=== PATIENT | male | born 1960 | race Caucasian/White ===

== ENCOUNTER 2022-03-05 22:52 | Inpatient (IN) | payer MEDICARE, OTHER ==
[~2022-03-05] VITALS: Ht 177.8 cm; Wt 72.6 kg
[2022-03-05 23:57] LABS: BASOPHILS # (AUTO) 0.1 K/uL (0.0-0.2); BASOPHILS % (AUTO) 0.9 % (0.0-2.0); EOSINOPHILS % (AUTO) 2.6 % (0.0-6.0); HEMATOCRIT 42 % (39-51); HEMOGLOBIN 14.1 g/dL (13.5-17.5); LYMPHOCYTES % (AUTO) 21.5 % (20.0-44.0); MEAN CORPUSCULAR HGB CONC 33 g/dl (31.0-36.0); MEAN CORPUSCULAR VOLUME 94 fL (80-96); MONOCYTES # (AUTO) 0.8 K/uL (0.1-1.30); MONOCYTES % (AUTO) 8.8 % (2.0-12.0); NEUTROPHILS # (AUTO) 6.3 K/uL (1.8-8.9); NEUTROPHILS % (AUTO) 66.2 % (43.0-81.0); PLATELET COUNT (AUTO) 143 K/uL (150-450); RED BLOOD CELL COUNT(AUTO) 4.49 MIL/uL (4.5-6.0); WHITE BLOOD COUNT (AUTO) 9.5 K/uL (4.3-11.0)
[2022-03-06 00:04] LABS: CALCIUM, SERUM 8.3 mg/dL (8.5-10.1); CARBON DIOXIDE 27 mmol/L (21-32); CHLORIDE 104 mmol/L (98-107); GLUCOSE 102 mg/dL (74-106); POTASSIUM 3.7 mmol/L (3.5-5.1); SODIUM SERUM 138 mmol/L (136-145); UREA NITROGEN, BLOOD 18 mg/dL (7-18)
[2022-03-06 00:11] LABS: ALANINE AMINOTRANSFERASE 30 U/L (12-78); ALBUMIN 3.4 g/dL (3.4-5.0); ALCOHOL, BLOOD < 3 mg/dL (0-0); ALKALINE PHOSPHATASE 93 U/L (46-116); ASPARTATE AMINOTRANSFERASE 19 U/L (15-37); BILIRUBIN,DIRECT 0.1 mg/dL (0.0-0.2); BILIRUBIN,TOTAL 0.3 mg/dL (0.2-1.0); TOTAL PROTEIN, SERUM 7.1 g/dL (6.4-8.2)
--- NOTE | 2022-03-06 00:17 | NUR ---
URINE AND COVID SWAB DONE AND SENT TO LAB
[2022-03-06 00:18] LABS: ACETAMINOPHEN 0 ug/ml (10-30)
[2022-03-06 01:01] LABS: BILIRUBIN,URINE NEGATIVE (NEGATIVE); COLOR,URINE YELLOW (YELLOW); LEUKOCYTE ESTERASE ,URINE NEGATIVE (NEGATIVE); NITRITE, URINE NEGATIVE (NEGATIVE); PH,URINE 5.5 (5.0-8.0); PROTEIN,URINE NEGATIVE (NEGATIVE); UGLUCOSE NEGATIVE (NEGATIVE); UROBILINOGEN,URINE 0.2 EU/dL (0.2)
--- NOTE | 2022-03-06 02:13 | NUR ---
PALMIRA HAMPTON PAGED FOR PSYCH EVAL AND WILL BE COMING.
--- NOTE | 2022-03-06 03:13 | NUR ---
MEMO AT BEDSIDE FOR EVAL.
--- NOTE | 2022-03-06 03:49 | NUR ---
REPORT GIVEN TO CLEMENT BURDICK FOR STEFANI
--- NOTE | 2022-03-06 04:44 | NUR ---
GPS RN NOTE PATIENT IS AGITATED, ANXIOUS, UNCOOPERATIVE AND REFUSED MRSA, SKIN ASSESSMENT, PATIENT REFUSED TO BE TOUCHED AND ALSO REFUSED ACCU CHECK UPON ADMISSION DESPITE OF EXPLANATIONS BUT PATIENT IS NON REDIRECTABLE AT THIS TIME AND REFUSED TO COOPERATE. Addendum: 03/06/22 at 0452 by LAMONT AVERY RN PATIENT WAS OFFERED ASSISTANCE, FOOD AND FLUIDS BUT PATIENT REFUSED ALL. GAVE SPACE TO THE PATIENT TO CALM DOWN. WILL CONTINUE TO MONITOR FOR ANY CHANGE OF CONDITION.
--- NOTE | 2022-03-06 04:46 | NUR ---
PATIENT TRANSFERRED, VSS, NO ACUTE DISTRESS NOTED.
[2022-03-06] MEDS ORDERED: AMLO-213 PO (04:58)
[2022-03-06] MEDS ORDERED: ASPI-1169 PO (04:58)
[2022-03-06] MEDS ORDERED: DULO30CA2 PO (04:59)
[2022-03-06] MEDS ORDERED: CHOL100045 PO (05:00)
[2022-03-06] MEDS ORDERED: LORAZEPAM 0.5 MG TABLET PO PRN (05:00)
[2022-03-06] MEDS ORDERED: MAG HYDROX/AL HYDROX/SIMETH 30 ML UDC PO PRN (05:00)
[2022-03-06] MEDS ORDERED: BLOOD SUGAR DIAGNOSTIC 1 EACH STRIP IN ONE (05:00)
[2022-03-06] MEDS ORDERED: MAGNESIUM HYDROXIDE 30 ML UDC PO PRN (05:00)
[2022-03-06] MEDS ORDERED: ACETAMINOPHEN 325 MG TABLET PO PRN (05:00)
[2022-03-06] MEDS ORDERED: BUDE0.5A4 NEB (05:01)
[2022-03-06] MEDS ORDERED: BUSP5TAB3 PO (05:03)
[2022-03-06] MEDS ORDERED: METO25TA4 PO (05:04)
[2022-03-06] MEDS ORDERED: ASCO500T21 PO (05:05)
[2022-03-06] MEDS ORDERED: ATOR10TA PO (05:06)
[2022-03-06] MEDS ORDERED: METF-440 PO (05:07)
--- NOTE | 2022-03-06 05:08 | NUR ---
GPS RN NOTE PATIENT IS RESTING IN THE OBSERVATION ROOM, NOTED TO BE CALM AT THIS TIME. OFFERED ACCU CHECK AGAIN BUT PATIENT CONTINUED TO REFUSE AND WANTED TO BE LEFT ALONE. WILL CONTINUE TO MONITOR CLOSELY FOR SAFETY AND BEHAVIOR.
[2022-03-06] MEDS ORDERED: ALBU2.5V13 NEB (05:09)
--- NOTE | 2022-03-06 05:11 | NUR ---
PATIENT REFUSED VITALS TO BE CHECKED, UNCOOPERATIVE, GETS AGITATED, ANXIOUS AND LOUD WHEN APPROACHED. PATIENT IS CALM WHEN SPACE GIVEN. WILL CONTINUE TO MONITOR.
--- NOTE | 2022-03-06 05:40 | NUR ---
GPS SHACKLER NOTE: ADMITTED 61 Y/O MALE PATIENT FROM [facility] ER, ORIGINALLY FROM [facility] [[email or web address] . PATIENT IS ON A 5150 HOLD FOR GD. PER 5150 HOLD, UPON FACE TO FACE EVALUATION AT BEDSIDE,PATIENT WAS VISIBLE UPSET, HE WAS YELLING AND HE WAS SLURRING HIS WORDS. PATIENT REPORTS HE DID NOT FEEL TREATED WELL AT THE NURSING FACILITY. PATIENT'S TRANSFER DOCUMENTATION FROM [facility] [[email or web address]] INDICATE PATIENT WAS AGITATED, VERBALLY AGGRESSIVE AND NON COMPLAINT. PATIENT HAS DX OF MAJOR DEPRESSIVE DISORDER, ANXIETY AND BIPOLAR, PATIENT IS PRESCRIBED BUSPIRONE AND CYMBALTA 30 MG. UPON FACE TO FACE ASSESSMENT, PATIENT IS A & O X 2-3, DISORGANIZED AT TIMES, VERBALLY AGGRESSIVE, DEMANDING, EASILY ANXIOUS, RESTLESS, HYPERVERBAL, NEEDY, DEMANDING, LABILE, DISHEVELED, UNCOOPERATIVE WITH ADMISSION ASSESSMENT. PATIENT IS NON REDIRECTABLE AT THIS TIME. FOCUSED ON DISCHARGING OUT OF THE HOSPITAL. PARANOID, SUSPICIOUS, HAS IMPAIRED JUDGEMENT AND POOR INSIGHT AND IMPULSE CONTROL. PATIENT HAS NO S/S OF DISTRESS. RESPIRATION EVEN AND UNLABORED WITH EQUAL RISE AND FALL OF THE CHEST, ON ROOM AIR. PATIENT REFUSED TO SIGN CONSENT FORMS, REFUSED SKIN ASSESSMENT, MRSA AND ACCU CHECK. PATIENT ORIENTED TO STAFF AND UNIT. PATIENT BELONGINGS INVENTORIED AND CONTRABAND DONE. PATIENT REFUSED PNEUMONIA/FLU VACCINE WHEN OFFERED. PATIENT REFUSED TO PROVIDE COVID VACCINE INFORMATION, CALLED [facility] BUT NO ONE ANSWERED, WILL TRY TO CALL SNF AGAIN TO PATIENT'S COVID VACCINE INFORMATION. PATIENT PROVIDED WITH PATIENT HANDBOOK AND PRESCRIPTION GUIDE BOOKLET. PATIENT IS UNDER THE PSYCHIATRIC CARE OF DR RODRIGUEZ AND MEDICAL CARE OF JOVON FANG. BOTH DOCTORS ARE AWARE OF PATIENT ADMISSION AND ORDERS CARRIED. PATIENT OFFERED FLUID AND SNACKS, BUT PATIENT CONTINUED TO REFUSE. PATIENT IS RESTING IN THE OBSERVATION ROOM, REFUSES TO GO TO HIS ASSIGNED ROOM YET. WILL CONTINUE TO MONITOR Q15 MINS FOR SAFETY, MOOD AND BEHAVIOR. Addendum: 03/06/22 at 0558 by LAMONT AVERY RN PATIENT'S BELONGINGS WERE INVENTORIED AND CHECKED FOR CONTRABAND.
--- NOTE | 2022-03-06 06:07 | NUR ---
PATIENT REFUSED TO PROVIDE ANY FAMILY INFORMATION TO NOTIFY ABOUT PATIENT'S ADMISSION AT [facility], GPS UNIT. PATIENT IS UNCOOPERATIVE.
--- NOTE | 2022-03-06 06:44 | NUR ---
GPS RN NOTE PATIENT IS CALM AND RELAXED AT THIS TIME, WANTS TO BE IN THE OBSERVATION ROOM FOR A WHILE. USES RESTROOM NEEDED. AMBULATORY, STEADY GAIT. WILL ENDORSE TO AM RN FOR CONTINUITY OF CARE.
--- NOTE | 2022-03-06 08:00 | NUR ---
GPS/RN PT REFUSED BODY/SKIN ASSESSMENT OFFERED X3
--- NOTE | 2022-03-06 13:18 | NUR ---
GPS/RN RECEIVED PT IN OBSERVATION ROOM, RESTING, LABILE AND IRRITABLE. PATIENT DENIES A/VH AND SI/HI AT THIS TIME. NOT REDIRECTABLE. NO S/S OF DISTRESS NOTED. AMBULATORY ALL NEEDS ATTENDED AND ANTICIPATED . WILL CONTINUE TO MONITOR Q15 FOR MOOD, SAFETY AND BEHAVIOR.
--- NOTE | 2022-03-06 15:03 | NUR ---
Dr. Whitfield seen pt. and pt. complaining on chest pain and ordered stat EKG and stat troponin Pt. refused for v/s checked.
--- NOTE | 2022-03-06 16:56 | NUR ---
Dr. Whitfield made aware of the Troponin and EKG results and no new orders.
[2022-03-06] MEDS ORDERED: busPIRone 5 MG TABLET PO SCH (17:00)
--- NOTE | 2022-03-06 20:27 | NUR ---
RN NOTES: PT. REFUSED VITAL SIGNS , PT. ANXIOUS EASILY AGITATED, PARANOID , UNCOOPERTIVE , ENCOURAGED X3 RISKS BENEFITS EXPLINED , PT. STRONGLY REFUSED , WILL CONTINUITY WITH CARE.
--- NOTE | 2022-03-06 20:27 | NUR ---
RN NOTES: PT. REFUSED BODY SKIN ASSESSMENT , PT. ANXIOUS EASILY AGITATED, PARANOID , UNCOOPERTIVE , ENCOURAGED X3 RISKS BENEFITS EXPLINED , PT. STRONGLY REFUSED , WILL CONTINUITY WITH CARE.
[2022-03-06] MEDS: DIVALPROEX SODIUM 125 MG CAP.SPRINK PO SCH (21:00)
[2022-03-06] MEDS: OLANZAPINE 5 MG TABLET PO SCH (21:29)
--- NOTE | 2022-03-06 21:31 | NUR ---
RN NOTES: PT. REFUSED NIGHT SCHEDULE MEDICATIONS ,PO DEPAKOTE SPRINKLE 125 MG, PO ZYPREXA 5MG , PT. ANXIOUS EASILY AGITATED, PARANOID , UNCOOPERTIVE , ENCOURAGED X3 RISKS BENEFITS EXPLINED , PT. STRONGLY REFUSED , WILL CONTINUITY WITH CARE.
[2022-03-07] MEDS ORDERED: ALBUTEROL FS 2.5 MG/0.5 ML VIAL.NEB NEB PRN (05:00)
[2022-03-07] MEDS ORDERED: BUDESONIDE RESPULE INH 0.5 MG/2 ML AMPUL.NEB NEB PRN (05:00)
--- NOTE | 2022-03-07 06:09 | NUR ---
RN NOTES: PATIENT RESTING IN OBSERVATIONS ROOM, DISORGANIZED, PARANOID,EASILY AGITATE,D NON COMPLIANT WITH NIGHT MEDS . NO S/S OF DISTRESS. SAFETY PRECAUTIONS IN PLACED , ENCOURAGED PT. TO VERBALIZED ANY FEELING OR CONCERN. ALL NEEDS ATTENDED AND ANTICIPATED, WILL CONTINUE TO MONITOR Q15 FOR MOOD, SAFETY AND BEHAVIOR.
--- NOTE | 2022-03-07 06:16 | NUR ---
RN NOTES: PATIENT RESTING IN OBSERVATIONS ROOM, WANTS TO BE STAY IN THE OBSERVATION ROOM ENCOURAGED TO GO BACK IN HIS ROOM , PER PT. I LIKE TO STAY HERE, PT. REFUSED TO STAY HIS ROOM , NON COMPLIANT WITH NIGHT MEDS . NO S/S OF DISTRESS. SAFETY PRECAUTIONS IN PLACED , ENCOURAGED PT. TO VERBALIZED ANY FEELING OR CONCERN. ALL NEEDS ATTENDED AND ANTICIPATED, WILL CONTINUE TO MONITOR Q15 FOR MOOD, SAFETY AND BEHAVIOR.
[2022-03-07] MEDS: METFORMIN 500 MG TABLET PO SCH (07:30)
[2022-03-07] MEDS: DIVALPROEX SODIUM 125 MG CAP.SPRINK PO SCH ×2 (09:00→21:00)
[2022-03-07] MEDS: METOPROLOL SUCCINATE 25 MG TAB.SR.24H PO SCH ×2 (09:00→21:00)
[2022-03-07] MEDS: ASPIRIN 81 MG TAB.CHEW PO SCH (09:00)
[2022-03-07] MEDS: AMLODIPINE BESYLATE 10 MG TABLET PO SCH (09:00)
[2022-03-07] MEDS: ASCORBIC ACID 500 MG TABLET PO SCH ×2 (09:00→17:00)
[2022-03-07] MEDS: CHOLECALCIFEROL 1,000 UNIT TABLET (VIT D3) PO SCH (09:00)
[2022-03-07] MEDS: DULOXETINE HCL 30 MG CAPSULE.DR PO SCH (09:00)
--- NOTE | 2022-03-07 09:30 | NUR ---
GPS/RN RECEIVED PT RESTING IN OBSERVATIONS ROOM HE REFUSED TO STAY IN HIS ROOM , NON COMPLIANT WITH AM MEDS . REFUSED TO LET MANAGED CARE COORDINATOR TO CHECK HIS VS IN AM NO S/S OF DISTRESS NOTED. SAFETY PRECAUTIONS IN PLACE . ALL NEEDS ATTENDED AND ANTICIPATED, WILL CONTINUE TO MONITOR Q15 FOR MOOD AND BEHAVIOR.
[2022-03-07 10:56] LABS: BASOPHILS # (AUTO) 0.1 K/uL (0.0-0.2); BASOPHILS % (AUTO) 0.7 % (0.0-2.0); EOSINOPHILS % (AUTO) 1.1 % (0.0-6.0); HEMATOCRIT 44 % (39-51); HEMOGLOBIN 14.6 g/dL (13.5-17.5); LYMPHOCYTES # (AUTO) 1.2 K/uL (0.8-4.8); LYMPHOCYTES % (AUTO) 16.9 % (20.0-44.0); MEAN CORPUSCULAR HGB CONC 33 g/dl (31.0-36.0); MEAN CORPUSCULAR VOLUME 93 fL (80-96); MONOCYTES # (AUTO) 0.4 K/uL (0.1-1.30); MONOCYTES % (AUTO) 6.2 % (2.0-12.0); NEUTROPHILS # (AUTO) 5.1 K/uL (1.8-8.9); NEUTROPHILS % (AUTO) 75.1 % (43.0-81.0); PLATELET COUNT (AUTO) 154 K/uL (150-450); WHITE BLOOD COUNT (AUTO) 6.8 K/uL (4.3-11.0)
[2022-03-07 11:19] LABS: CALCIUM, SERUM 8.8 mg/dL (8.5-10.1); CREATININE 1.1 mg/dL (0.6-1.3)
[2022-03-07 13:27] LABS: THYROID STIMULATING HORMONE 0.51 uIU/mL (0.358-3.74)
[2022-03-07] MEDS: ATORVASTATIN 10 MG TABLET PO SCH (21:35)
[2022-03-07] MEDS: OLANZAPINE 5 MG TABLET PO SCH (22:00)
--- NOTE | 2022-03-07 22:49 | NUR ---
Patient is alert,oriented x 2-3,ambulatory,sarcastic,guarded and blunted affect upon approach.Patient his scheduled night time medications,offered x 3 but became aggressive and verbally abusive.No s/s of acute distress noted.Will continue to monitor q15 min rounds for safety.
--- NOTE | 2022-03-08 04:23 | NUR ---
Patient is aggressive,refusing skin reassessment.
--- NOTE | 2022-03-08 05:43 | NUR ---
Patient was so upset stating that he is not mentally ill.Requested for discharge today to see his own primary cardiac MD.He stated that he won't take medications here,including his TOPROL XL.Patient said he was just discharged from ICU for S/p stent.Patient appears to be frustrated and upset ,easily gets irritated.Will continue to monitor q15 min rounds for safety.
[2022-03-08] MEDS: METFORMIN 500 MG TABLET PO SCH (07:30)
[2022-03-08] MEDS: ASPIRIN 81 MG TAB.CHEW PO SCH (09:00)
[2022-03-08] MEDS: DIVALPROEX SODIUM 125 MG CAP.SPRINK PO SCH ×2 (09:00→21:00)
[2022-03-08] MEDS: DULOXETINE HCL 30 MG CAPSULE.DR PO SCH (09:00)
[2022-03-08] MEDS: METOPROLOL SUCCINATE 25 MG TAB.SR.24H PO SCH ×2 (09:00→20:22)
[2022-03-08] MEDS: ASCORBIC ACID 500 MG TABLET PO SCH ×2 (09:00→16:39)
[2022-03-08] MEDS: AMLODIPINE BESYLATE 10 MG TABLET PO SCH (09:00)
[2022-03-08] MEDS: CHOLECALCIFEROL 1,000 UNIT TABLET (VIT D3) PO SCH (09:00)
--- NOTE | 2022-03-08 10:21 | NUR ---
Treatment Plan: Pt refused to sign treatment plan and was verbally abusive.
--- NOTE | 2022-03-08 10:33 | NUR ---
[facility] Admit Source: Pt placed on a 5150 hold for GD. Pt was aggressive at his facility and was yelling at staff. Pt currently resides at [facility] located at [address] [place] [address]; . [facility] spoke with Yousif Corsage Maker ([phone]) who stated that the facility cannot take pt back but will relocate pt to a different facility and requested when pt is stable to send clinicals to review. Pt has no supportive contact.
--- NOTE | 2022-03-08 10:33 | NUR ---
[facility] Initial Discharge Plan: Pt currently resides at [facility] located at [address] [place] [address]; . [facility] spoke with Yousif Managing Consultant ([phone]) who stated that the facility cannot take pt back but will relocate pt to a different facility and requested when pt is stable to send clinicals to review. Pt has no supportive contact. [facility] will work with the MD and pt to help coordinate appropriate discharge.
[2022-03-08 16:00] VITALS: BP 159/87
--- NOTE | 2022-03-08 16:38 | NUR ---
Individual Counseling: Pt. resented in the day room and making piercing eye contact to SW while SW engaged with other patient. Pt. appears with elevated mood and irritable, upset getting loud with activity staff. Psychiatrist met with pt. at this time. SW will monitor patient's ability to participate in therapeutic milieu.
--- NOTE | 2022-03-08 18:42 | NUR ---
RN NOTES PATIENT REFUSED TO TAKE MEDICATIONS DESPITE OF EXPLANATION OF RISKS AND BENEFITS, OFFERED X 3. COLOR WEIGHER BATSHEVA ROSADO AND DR GARCIA AWARE
[2022-03-08] MEDS: ATORVASTATIN 10 MG TABLET PO SCH (22:00)
[2022-03-08] MEDS: OLANZAPINE 5 MG TABLET PO SCH (22:00)
[2022-03-09] MEDS: METFORMIN 500 MG TABLET PO SCH (07:30)
[2022-03-09 08:00] VITALS: BP 145/93
[2022-03-09] MEDS: DIVALPROEX SODIUM 125 MG CAP.SPRINK PO SCH ×2 (08:09→21:00)
[2022-03-09] MEDS: DULOXETINE HCL 30 MG CAPSULE.DR PO SCH (08:09)
[2022-03-09] MEDS: ASPIRIN 81 MG TAB.CHEW PO SCH (08:09)
[2022-03-09] MEDS: AMLODIPINE BESYLATE 10 MG TABLET PO SCH (08:10)
[2022-03-09] MEDS: METOPROLOL SUCCINATE 25 MG TAB.SR.24H PO SCH ×2 (08:12→20:14)
[2022-03-09] MEDS: ASCORBIC ACID 500 MG TABLET PO SCH ×2 (08:13→17:00)
[2022-03-09] MEDS: CHOLECALCIFEROL 1,000 UNIT TABLET (VIT D3) PO SCH (08:13)
[2022-03-09] MEDS ORDERED: ASPIRIN 81 MG TAB.CHEW PO STA (18:03)
--- NOTE | 2022-03-09 18:32 | NUR ---
PATIENT COMPLAIN OF CHEST PAIN AT 17:44 NOTIFIED ,LEFT MESSAGE . RESPOND AT 6:01 WITH NEW ORDER EKG,TROPONIN STAT AND BABY ASPIRIN ,BP 158/91 ,P 76, O2SAT 94%.PATIENT COMPLIANT WITH BABY ASPIRIN . WILL CONTINUE TO MONITOR .
--- NOTE | 2022-03-09 19:21 | NUR ---
GPS RN NOTES PATIENT PACING IN THE HALLWAY. A/OX3. NO S/S OF ACUTE DISTRESS NOTED. PATIENT REMAINS ANXIOUS, RESTLESS, PARANOID UPON APPROACH, GUARDED, AND EASILY GETS IRRITATED AND SARCASTIC. SAFETY PRECAUTIONS IN PLACE. WILL CONTINUE TO MONITOR Q15MIN ROUNDS FOR SAFETY AND BEHAVIOR. Addendum: 03/09/22 at 2031 by ELIZABETH PRINCE RN PT HAS NO C/O SOB. BREATHING IS EVEN AND UNLABORED. DENIES PAIN/DISCOMFORT AT THIS TIME.
[2022-03-09 20:00] VITALS: BP 127/77
[2022-03-09] MEDS: ATORVASTATIN 10 MG TABLET PO SCH (21:36)
[2022-03-09] MEDS: OLANZAPINE 5 MG TABLET PO SCH (21:37)
--- NOTE | 2022-03-09 22:00 | NUR ---
GPS RN NOTES: MEDICATION REFUSAL PATIENT REFUSED TO TAKE HIS SCHEDULED NIGHT TIME MEDICATIONS, OFFERED X3, BUT BECAME AGGRESSIVE AND VERBALLY ABUSIVE. WILL CONTINUE TO MONITOR.
[2022-03-10] MEDS: METFORMIN 500 MG TABLET PO SCH (07:30)
[2022-03-10] MEDS: METOPROLOL SUCCINATE 25 MG TAB.SR.24H PO SCH ×3 (08:56→21:36)
[2022-03-10] MEDS: DULOXETINE HCL 30 MG CAPSULE.DR PO SCH (08:56)
[2022-03-10] MEDS: ASPIRIN 81 MG TAB.CHEW PO SCH (08:56)
[2022-03-10] MEDS: ASCORBIC ACID 500 MG TABLET PO SCH ×2 (08:57→16:55)
[2022-03-10] MEDS: CHOLECALCIFEROL 1,000 UNIT TABLET (VIT D3) PO SCH (08:57)
[2022-03-10] MEDS: DIVALPROEX SODIUM 125 MG CAP.SPRINK PO SCH ×3 (08:57→21:36)
[2022-03-10] MEDS: AMLODIPINE BESYLATE 10 MG TABLET PO SCH (08:57)
--- NOTE | 2022-03-10 11:00 | NUR ---
RN-CO: RECEIVED AN ORDER FROM DR RODRIGUEZ (PT IS NOW KETAN) TO GIVE HALDOL 5 MG PO BID, THEN FOR EACH REFUSAL OF HALDOL , GIVE ZYPREXA 5 MG IM BID.NOTED.
[2022-03-10] MEDS: OLANZAPINE ZYDIS 5 MG TAB.RAPDIS PO SCH ×2 (11:33→16:53)
--- NOTE | 2022-03-10 12:46 | NUR ---
Court Hearing Notification: Pt does not have any supportive contact to contact for riese and court hearing.
--- NOTE | 2022-03-10 12:46 | NUR ---
Individual Counseling: Pt unable to have a meaningful conversation. Pt appeared labile and hyperverbal. Pt appeared paranoid of this hand sign writer and was angry.
[2022-03-10] MEDS: TEMAZEPAM 7.5 MG CAPSULE PO PRN (20:56)
[2022-03-10] MEDS: ATORVASTATIN 10 MG TABLET PO SCH ×2 (21:36→22:00)
[2022-03-11] MEDS: METFORMIN 500 MG TABLET PO SCH (07:30)
[2022-03-11 08:00] VITALS: BP 157/72
[2022-03-11] MEDS: ASPIRIN 81 MG TAB.CHEW PO SCH (08:48)
[2022-03-11] MEDS: DULOXETINE HCL 30 MG CAPSULE.DR PO SCH (08:49)
[2022-03-11] MEDS: DIVALPROEX SODIUM 125 MG CAP.SPRINK PO SCH ×2 (08:49→21:00)
[2022-03-11] MEDS: AMLODIPINE BESYLATE 10 MG TABLET PO SCH (08:49)
[2022-03-11] MEDS: METOPROLOL SUCCINATE 25 MG TAB.SR.24H PO SCH ×2 (08:49→21:00)
[2022-03-11] MEDS: OLANZAPINE ZYDIS 5 MG TAB.RAPDIS PO SCH ×2 (08:50→16:18)
[2022-03-11] MEDS: HALOPERIDOL LACTATE INJ 5 MG/ML VIAL IM PRN (08:50)
[2022-03-11] MEDS: ASCORBIC ACID 500 MG TABLET PO SCH ×3 (08:50→16:22)
[2022-03-11] MEDS: CHOLECALCIFEROL 1,000 UNIT TABLET (VIT D3) PO SCH (08:50)
--- NOTE | 2022-03-11 10:00 | NUR ---
RN Notes: Received awake in bed, suspicious, angry on staffs and shouted to get out from the room. In the beginning pt. refused for v/s cheacked and eventually agreed only for the BP, RR and CT. Pt. ate 25% for breakfast, refused to take po meds, was explained on the importance and still refusing was verbally abusive to staffs, angry, loud and irritable. Haldol 5 mg IM given as ordered since pt. is on [place]. Encouraged to verbalize feelings and motivated to attend group activity. Needs attended and will continue to monitor for safety.
[2022-03-11 16:00] VITALS: BP 131/77
--- NOTE | 2022-03-11 19:20 | NUR ---
GPS RN NOTES PATIENT IN HIS ROOM RESTING COMFORTABLY. AWAKE, ALERT AND ORIENTED X3. ABLE TO MAKE NEEDS KNOWN. NO S/S OF ACUTE DISTRESS NOTED. PATIENT REMAINS ANXIOUS, PARANOID UPON APPROACH, GUARDED, SUSPICIOUS, ANGRY AFFECT, REFUSED V/S FOR INITIAL ASSESSMENT AND EASILY GETS IRRITATED. NO VERBALIZATION OF THOUGHTS OR FEELINGS. SAFETY PRECAUTIONS IN PLACE. WILL CONTINUE TO MONITOR Q15MIN ROUNDS FOR SAFETY AND BEHAVIOR.
[2022-03-11] MEDS: ATORVASTATIN 10 MG TABLET PO SCH (21:23)
--- NOTE | 2022-03-11 21:55 | NUR ---
GPS RN NOTES: MEDICATION REFUSAL PATIENT REFUSED TO TAKE HIS SCHEDULED NIGHT TIME MEDICATIONS, OFFERED X3, BUT BECAME AGGRESSIVE AND VERBALLY ABUSIVE. WILL CONTINUE TO MONITOR.
[2022-03-12] MEDS: METFORMIN 500 MG TABLET PO SCH (07:30)
[2022-03-12] MEDS: ASPIRIN 81 MG TAB.CHEW PO SCH (08:49)
[2022-03-12] MEDS: CHOLECALCIFEROL 1,000 UNIT TABLET (VIT D3) PO SCH (08:49)
[2022-03-12] MEDS: METOPROLOL SUCCINATE 25 MG TAB.SR.24H PO SCH ×2 (08:49→21:00)
[2022-03-12] MEDS: AMLODIPINE BESYLATE 10 MG TABLET PO SCH (08:49)
[2022-03-12] MEDS: ASCORBIC ACID 500 MG TABLET PO SCH ×2 (08:49→17:00)
[2022-03-12] MEDS: DULOXETINE HCL 30 MG CAPSULE.DR PO SCH (08:50)
[2022-03-12] MEDS: OLANZAPINE ZYDIS 5 MG TAB.RAPDIS PO SCH ×2 (08:56→17:50)
[2022-03-12] MEDS: DIVALPROEX SODIUM 125 MG CAP.SPRINK PO SCH ×2 (08:56→21:00)
[2022-03-12] MEDS: HALOPERIDOL LACTATE INJ 5 MG/ML VIAL IM PRN (08:57)
--- NOTE | 2022-03-12 09:00 | NUR ---
GPS/RN RECEIVED PATIENT RESTING IN THE ROOM NO S/S DISTRESS NOTED AT THIS TIME REFUSED VS. AGGRESSIVE AND BELLIGERENT. ENIES SI/HI AVH.DENIED PAIN AND DISCOMFORTS. REFUSED DAM MEDS OFFERED X3. HALDOL 5MGIM GIVEN PER DOCTORS ORDER. ALL NEEDS ATTENDED AND ANTICIPATED. WILL CONTINUE MONITORING FOR SAFETY AND BEHAVIOR Q 15 MIN
[2022-03-12 16:00] VITALS: BP 143/80
--- NOTE | 2022-03-12 20:25 | NUR ---
patient refused the V/S.
[2022-03-12] MEDS: ATORVASTATIN 10 MG TABLET PO SCH (21:52)
[2022-03-13] MEDS: METFORMIN 500 MG TABLET PO SCH (07:30)
[2022-03-13] MEDS: ASPIRIN 81 MG TAB.CHEW PO SCH (08:49)
[2022-03-13] MEDS: DULOXETINE HCL 30 MG CAPSULE.DR PO SCH (08:49)
[2022-03-13] MEDS: AMLODIPINE BESYLATE 10 MG TABLET PO SCH (08:49)
[2022-03-13] MEDS: METOPROLOL SUCCINATE 25 MG TAB.SR.24H PO SCH ×2 (08:49→21:00)
[2022-03-13] MEDS: ASCORBIC ACID 500 MG TABLET PO SCH ×2 (08:49→17:00)
[2022-03-13] MEDS: CHOLECALCIFEROL 1,000 UNIT TABLET (VIT D3) PO SCH (08:50)
[2022-03-13] MEDS: OLANZAPINE ZYDIS 5 MG TAB.RAPDIS PO SCH ×4 (09:00→17:56)
[2022-03-13] MEDS: DIVALPROEX SODIUM 125 MG CAP.SPRINK PO SCH ×2 (09:00→21:00)
[2022-03-13] MEDS: HALOPERIDOL LACTATE INJ 5 MG/ML VIAL IM PRN (09:51)
--- NOTE | 2022-03-13 13:08 | NUR ---
GPS/RN 1000 ZYPREXA NOT GIVEN PT ALREADY MEDICATED WITH HALDOL IM
--- NOTE | 2022-03-13 20:15 | NUR ---
GPS RN NOTE PATIENT REFUSED ROUTINE VITALS AT THIS TIME DESPITE OF RISKS AND BENEFITS EXPLANATIONS, PATIENT IS VERBALLY ABUSIVE WHEN APPROACHED TO CHECK VITALS, GETS AGITATED AND AGGRESSIVE AND WANTS TO BE LEFT ALONE. SPACE GIVEN TO THE PATIENT TO CALM DOWN AND IS EFFECTIVE. WILL CONTINUE TO MONITOR FOR ANY CHANGES.
--- NOTE | 2022-03-13 21:50 | NUR ---
GPS RN NOTE: MEDICATION REFUSAL PATIENT REFUSED DEPAKOTE AND TOPROL-XL SCHEDULED DESPITE OF RISKS AND BENEFITS EXPLANATIONS, PATIENT STATED," NO PILLS FOR ME, DOESN'T WORK FOR ME, I ONLY NEED ICE WATER AND ORANGE JUICE, NOTHING ELSE." PATIENT IS UNCOOPERATIVE, EASILY AGITATED AND NON COMPLAINT WITH HYGIENE CARE NAD MEDICATIONS.
[2022-03-13] MEDS: ATORVASTATIN 10 MG TABLET PO SCH (22:00)
--- NOTE | 2022-03-13 22:14 | NUR ---
GPS RN NOTE: MEDICATION REFUSAL PATIENT REFUSED LIPITOR SCHEDULED AT 2200 DESPITE OF RISKS AND BENEFITS EXPLANATIONS, PATIENT IS UNCOOPERATIVE, EASILY AGITATED AND NON COMPLAINT WITH MEDICATIONS.
[2022-03-14] MEDS: METFORMIN 500 MG TABLET PO SCH (07:30)
[2022-03-14] MEDS: DULOXETINE HCL 30 MG CAPSULE.DR PO SCH (09:00)
[2022-03-14] MEDS: DIVALPROEX SODIUM 125 MG CAP.SPRINK PO SCH ×2 (09:00→22:07)
[2022-03-14] MEDS: OLANZAPINE ZYDIS 5 MG TAB.RAPDIS PO SCH ×3 (09:00→16:10)
[2022-03-14] MEDS: ASPIRIN 81 MG TAB.CHEW PO SCH (09:00)
[2022-03-14] MEDS: METOPROLOL SUCCINATE 25 MG TAB.SR.24H PO SCH ×2 (09:00→21:00)
[2022-03-14] MEDS: AMLODIPINE BESYLATE 10 MG TABLET PO SCH (09:00)
[2022-03-14] MEDS: CHOLECALCIFEROL 1,000 UNIT TABLET (VIT D3) PO SCH (09:00)
[2022-03-14] MEDS: ASCORBIC ACID 500 MG TABLET PO SCH ×2 (09:00→16:10)
--- NOTE | 2022-03-14 09:00 | NUR ---
RN NOTE- RECEIVED PT IN HIS ROOM RESTING, LABILE AND IRRITABLE. OPPOSITIONAL TO CARE , MEDS AND DISCUSSION. PATIENT DENIES A/VH AND SI/HI AT THIS TIME. REDIRECTABLE. NO S/S OF DISTRESS NOTED. AMBULATORY ALL NEEDS ATTENDED AND ANTICIPATED. WILL CONTINUE TO MONITOR Q15 FOR MOOD, SAFETY AND BEHAVIOR.
[2022-03-14] MEDS: HALOPERIDOL LACTATE INJ 5 MG/ML VIAL IM PRN (09:32)
--- NOTE | 2022-03-14 12:28 | NUR ---
RN-CO: PATIENT'S RIGHTS HANDBOOK WAS GIVEN TO THE PATIENT AND EXPLAINED.
--- NOTE | 2022-03-14 19:15 | NUR ---
RN OPENING NOTES RECEIVED PATIENT ON RESTING ON BED, ALERT AND VERBALLY RESPONSIVE. RESPIRATORY EVEN AND UNLABORED NO SOB NOTED. NOT IN DISTRESS. PATIENT APPEARS DEPRESSED, NOT AGITATED AT THIS TIME, REFUSED VITAL SIGNS EXPLAINED RISK AND BENEFITS OFFERED 3X STILL REFUSED. ALL SAFETY MEASURE PROVIDED. CONTINUE TO MONITOR.
--- NOTE | 2022-03-14 20:00 | NUR ---
RN NOTES PATIENT REFUSED VITAL SIGNS EXPLAINED RISK AND BENEFITS OFFERED 3X STILL REFUSED.
--- NOTE | 2022-03-14 21:00 | NUR ---
RN NOTES METPROLOL 25MG NOT GIVEN, PATIENT REFUSED FOR BLOOD PRESSURE TO BE TAKEN, EXPLAINED RISK AND BENEFITS OFFERED 3X STILL REFUSED
[2022-03-14] MEDS: ATORVASTATIN 10 MG TABLET PO SCH (22:07)
--- NOTE | 2022-03-15 05:00 | NUR ---
RN NOTES PATIENT REFUSED WEEKLY SKIN ASSESSMENT, EXPLAINED RISK AND BENEFITS, OFFERED 3X, STILL REFUSED.
[2022-03-15] MEDS: METFORMIN 500 MG TABLET PO SCH ×2 (07:30→08:39)
--- NOTE | 2022-03-15 07:30 | NUR ---
RN NOTES RECEIVED PATIENT IN BED, RESTING, ALERT AND VERBALLY RESPONSIVE. RESPIRATORY EVEN AND UNLABORED NO SOB NOTED. NOT IN DISTRESS. PATIENT APPEARS DEPRESSED, IRRITATED, REFUSED VITAL SIGN CHECK AND AM MEDICAITONS. EXPLAINED RISK AND BENEFITS OFFERED 3X STILL REFUSED. ALL SAFETY MEASURE PROVIDED. CONTINUE TO MONITOR. REFUSED AM MEDS. HALDOL 5MG IM GIVEN
--- NOTE | 2022-03-15 07:36 | NUR ---
RN NOTES PATIENT SLEEP WELL AT NIGHT, NO SOB NOTED, NOT IN DISTRESS. EASILY GET AGITATED, UNCOOPERATIVE AT TIMES. COMPLIANT WITH PO MEDS DURING HOUSEKEEPING LEAD. SAFETY MEASURE PROVIDED..
[2022-03-15] MEDS: ASCORBIC ACID 500 MG TABLET PO SCH ×3 (08:44→17:00)
[2022-03-15] MEDS: CHOLECALCIFEROL 1,000 UNIT TABLET (VIT D3) PO SCH ×2 (08:44→09:00)
[2022-03-15] MEDS: ASPIRIN 81 MG TAB.CHEW PO SCH ×2 (08:44→09:00)
[2022-03-15] MEDS: DIVALPROEX SODIUM 125 MG CAP.SPRINK PO SCH ×3 (08:46→21:00)
[2022-03-15] MEDS: OLANZAPINE ZYDIS 5 MG TAB.RAPDIS PO SCH ×4 (08:46→17:42)
[2022-03-15] MEDS: AMLODIPINE BESYLATE 10 MG TABLET PO SCH (08:47)
[2022-03-15] MEDS: METOPROLOL SUCCINATE 25 MG TAB.SR.24H PO SCH ×3 (08:47→21:00)
[2022-03-15] MEDS: DULOXETINE HCL 30 MG CAPSULE.DR PO SCH ×2 (08:49→09:00)
--- NOTE | 2022-03-15 08:50 | NUR ---
SNF Referral: [facility] sent clinicals to [facility] Muse for placement option. SW sent H & P, progress notes, and medication list.
[2022-03-15] MEDS: HALOPERIDOL LACTATE INJ 5 MG/ML VIAL IM PRN (09:26)
--- NOTE | 2022-03-15 09:30 | NUR ---
RN NOTES REFSUED AM VITAL SIGNS CHECK AND AM MEDS
--- NOTE | 2022-03-15 10:50 | NUR ---
SNF Contact: SW received a call from [employer] ([phone]) that pt is accepted at [facility].
--- NOTE | 2022-03-15 11:17 | NUR ---
SNF Referral: [facility] sent clinicals to Melly from [facility] ([phone]) for placement option. SW sent H & P, progress notes, and medication list.
--- NOTE | 2022-03-15 11:18 | NUR ---
SNF Contact: SW spoke with Melly from [facility] ([phone]) who stated pt is accepted.
[2022-03-15 16:00] VITALS: BP 161/88
--- NOTE | 2022-03-15 18:28 | NUR ---
RN NOTES ALL NEEDS MET AT THIS TIME. PM CARE DONE EARLIER.
--- NOTE | 2022-03-15 19:25 | NUR ---
GPS RN NOTES PATIENT IN HIS ROOM RESTING COMFORTABLY. ALERT AND ORIENTED X3. ABLE TO MAKE NEEDS KNOWN. NO S/SX OF ACUTE DISTRESS NOTED. PATIENT REMAINS ANXIOUS, PARANOID UPON APPROACH, GUARDED, SUSPICIOUS, ANGRY AFFECT, REFUSED VITAL SIGNS FOR INITIAL ASSESSMENT, EASILY GETS IRRITATED. NO VERBALIZATION OF THOUGHTS AND FEELINGS. SAFETY PRECAUTIONS IN PLACE. WILL CONTINUE TO MONITOR Q15MIN ROUNDS FOR SAFETY AND BEHAVIOR.
[2022-03-15] MEDS: ATORVASTATIN 10 MG TABLET PO SCH (21:19)
--- NOTE | 2022-03-15 21:55 | NUR ---
GPS RN NOTES: MEDICATION REFUSAL PATIENT REFUSED TO TAKE HIS SCHEDULED NIGHT TIME MEDICATIONS, OFFERED X3, DESPITE OF RISKS AND BENEFITS EXPLANATION. PATIENT CONTINUED TO REFUSE. PATIENT STATED, NO, "I DON'T WANT TO TAKE IT, I'M FINE". WILL CONTINUE TO MONITOR.
[2022-03-16] MEDS: METFORMIN 500 MG TABLET PO SCH (07:30)
[2022-03-16] MEDS: AMLODIPINE BESYLATE 10 MG TABLET PO SCH (09:00)
[2022-03-16] MEDS: DIVALPROEX SODIUM 125 MG CAP.SPRINK PO SCH ×2 (09:00→21:00)
[2022-03-16] MEDS: METOPROLOL SUCCINATE 25 MG TAB.SR.24H PO SCH ×2 (09:00→21:00)
[2022-03-16] MEDS: ASPIRIN 81 MG TAB.CHEW PO SCH (09:00)
[2022-03-16] MEDS: DULOXETINE HCL 30 MG CAPSULE.DR PO SCH (09:00)
[2022-03-16] MEDS: OLANZAPINE ZYDIS 5 MG TAB.RAPDIS PO SCH ×3 (09:00→17:25)
[2022-03-16] MEDS: CHOLECALCIFEROL 1,000 UNIT TABLET (VIT D3) PO SCH (09:00)
[2022-03-16] MEDS: ASCORBIC ACID 500 MG TABLET PO SCH ×2 (09:00→17:00)
[2022-03-16] MEDS: HALOPERIDOL LACTATE INJ 5 MG/ML VIAL IM PRN (10:18)
--- NOTE | 2022-03-16 19:16 | NUR ---
RN NOTE PATIENT RESTING COMFORTABLY IN BED. ALERT AND ORIENTED X3. ABLE TO MAKE NEEDS KNOWN. NO S/SX OF ACUTE DISTRESS NOTED AT THIS TIME. GUARDED AND SUSPICIOUS. REFUSED VITAL SIGNS FOR INITIAL ASSESSMENT.EASILY GETS IRRITATED. NO VERBALIZATION OF THOUGHTS AND FEELINGS. COMPLIANT WITH MEDICATIONS THIS SHIFT. SAFETY PRECAUTIONS IN PLACE. WILL CONTINUE TO MONITOR. ENDORSED TO NEXT SHIFT.
--- NOTE | 2022-03-16 19:20 | NUR ---
GPS RN NOTES PATIENT IN HIS ROOM RESTING COMFORTABLY. ALERT AND ORIENTED X3. ABLE TO MAKE NEEDS KNOWN. NO S/SX OF ACUTE DISTRESS NOTED. PATIENT REMAINS ANXIOUS, PARANOID UPON APPROACH, GUARDED, SUSPICIOUS, REFUSED VITAL SIGNS FOR INITIAL ASSESSMENT. NO VERBALIZATION OF THOUGHTS AND FEELINGS. SAFETY PRECAUTIONS IN PLACE. WILL CONTINUE TO MONITOR Q15MIN ROUNDS FOR SAFETY AND BEHAVIOR.
--- NOTE | 2022-03-16 21:50 | NUR ---
GPS RN NOTES PATIENT REFUSED TAKING HIS NIGHT TIME MEDICATIONS X3. DESPITE ENCOURAGEMENT AND EXPLAINING THE IMPORTANCE. PATIENT CONTINUED TO REFUSED.
[2022-03-16] MEDS: ATORVASTATIN 10 MG TABLET PO SCH (22:00)
[2022-03-16] MEDS: TEMAZEPAM 7.5 MG CAPSULE PO PRN (23:27)
[2022-03-17] MEDS: METFORMIN 500 MG TABLET PO SCH (07:30)
[2022-03-17] MEDS: DULOXETINE HCL 30 MG CAPSULE.DR PO SCH (08:15)
[2022-03-17] MEDS: AMLODIPINE BESYLATE 10 MG TABLET PO SCH (08:15)
[2022-03-17] MEDS: DIVALPROEX SODIUM 125 MG CAP.SPRINK PO SCH ×2 (08:15→21:00)
[2022-03-17] MEDS: ASPIRIN 81 MG TAB.CHEW PO SCH (08:15)
[2022-03-17] MEDS: ASCORBIC ACID 500 MG TABLET PO SCH ×2 (08:16→16:01)
[2022-03-17] MEDS: CHOLECALCIFEROL 1,000 UNIT TABLET (VIT D3) PO SCH (08:16)
[2022-03-17] MEDS: OLANZAPINE ZYDIS 5 MG TAB.RAPDIS PO SCH ×4 (08:16→16:09)
[2022-03-17] MEDS: METOPROLOL SUCCINATE 25 MG TAB.SR.24H PO SCH ×2 (08:16→21:00)
[2022-03-17] MEDS: HALOPERIDOL LACTATE INJ 5 MG/ML VIAL IM PRN ×3 (08:39→16:02)
--- NOTE | 2022-03-17 10:55 | NUR ---
RN-PATIENT IS CONTINUES WITH HIS PARANOID BEHAVIOR, OPPOSITIONAL W MOST THINGS. REFUSED RX IN AM .IM HALDOL GIVEN. (PER SILVESTRE) PT IS EXTREMELY MALODOROUS AND REFUSED TO SHOWER.. LABILE AND IRRITABLE. PATIENT DENIES A/VH AND SI/HI AT THIS TIME. NOT REDIRECTABLE.REFUSED AM MEDS. NO S/S OF DISTRESS NOTED. AMBULATORY ALL NEEDS ATTENDED AND ANTICIPATED. WILL CONTINUE TO MONITOR Q15 FOR MOOD, :
[2022-03-17] MEDS ORDERED: hydrALAZINE HCL 10 MG TABLET PO PRN (11:30)
--- NOTE | 2022-03-17 15:32 | NUR ---
Individual Counseling: SW met with pt. at bedside to conduct individual check in. However, pt. was asleep and not awakened via verbal cues. SW will invite pt. to next individual or group counseling session.
[2022-03-17 16:00] VITALS: BP 146/92
--- NOTE | 2022-03-17 16:21 | NUR ---
RN-CO: Patient's behavior is improving. He showered this afternoon, less angry and he took his Zyprexa PO.
--- NOTE | 2022-03-17 19:30 | NUR ---
GPS RN NOTES received laying on his bed inside the room,a/o x3-4,able to verbalized needs,asking gor his sleeping pill early,advised that he some more medications to take but he commented "i dont need anything more,only this sleeping pill ", noted.
[2022-03-17] MEDS: TEMAZEPAM 7.5 MG CAPSULE PO PRN (20:03)
--- NOTE | 2022-03-17 20:03 | NUR ---
GPS RN NOTES IN ROOM AWAKE,ASKING FOR HIS SLEEPING TO TAKE EARLY,ADMINISTERED. PER PATIENT REQUEST.
--- NOTE | 2022-03-17 21:00 | NUR ---
GPS RN NOTES REFUSED HIS NIGHT SCHEDULED MEDICATIONS
--- NOTE | 2022-03-17 21:10 | NUR ---
GPS RN NOTES REFUSED TO BE CHECK HIS VITAL SIGNS
[2022-03-17] MEDS: ATORVASTATIN 10 MG TABLET PO SCH (21:30)
[2022-03-18] MEDS: METFORMIN 500 MG TABLET PO SCH (07:30)
--- NOTE | 2022-03-18 07:53 | NUR ---
Pt. refused v/s checked in the morning. Irritable and angry.
[2022-03-18 08:00] VITALS: BP 133/71
--- NOTE | 2022-03-18 08:18 | NUR ---
Pt. agreed for v/s check at this time. BP 133/71, ND 59, RR 18, temp 98.0, oxygen sat 98%.
[2022-03-18] MEDS: OLANZAPINE ZYDIS 5 MG TAB.RAPDIS PO SCH ×3 (08:20→16:11)
[2022-03-18] MEDS: DIVALPROEX SODIUM 125 MG CAP.SPRINK PO SCH ×2 (09:00→20:05)
[2022-03-18] MEDS: AMLODIPINE BESYLATE 10 MG TABLET PO SCH (09:00)
[2022-03-18] MEDS: ASPIRIN 81 MG TAB.CHEW PO SCH (09:00)
[2022-03-18] MEDS: CHOLECALCIFEROL 1,000 UNIT TABLET (VIT D3) PO SCH (09:00)
[2022-03-18] MEDS: DULOXETINE HCL 30 MG CAPSULE.DR PO SCH (09:00)
[2022-03-18] MEDS: ASCORBIC ACID 500 MG TABLET PO SCH ×2 (09:00→16:12)
[2022-03-18] MEDS ORDERED: HALOPERIDOL DECANOATE IM 100 MG/ML AMPUL IM ONE (09:00)
[2022-03-18] MEDS: METOPROLOL SUCCINATE 25 MG TAB.SR.24H PO SCH ×2 (09:00→20:07)
--- NOTE | 2022-03-18 10:40 | NUR ---
RN Notes: Received pt. awake in bed, guarded upon approached and suspicious. In the beginning pt. refused for v/s check and eventually agreed after explanation. Pt. took only the Zyprexa po and refused the rest of po meds. Pt. seen by school psychometrist and ordered Haldol Dec 50 mg IM and given and pt. is cooperative with the injection. Encouraged to attend group activity and encouraged to atake shower. Needs attended and will continue to monitor for safety.
[2022-03-18 16:00] VITALS: BP 144/94
[2022-03-18] MEDS: TEMAZEPAM 7.5 MG CAPSULE PO PRN (21:34)
[2022-03-18] MEDS: ATORVASTATIN 10 MG TABLET PO SCH (21:34)
--- NOTE | 2022-03-18 21:35 | NUR ---
RN NOTES: INSOMNIA PT. C/O INSOMNIA PRN RESTORIL 7.5 MG PO GIVEN PER PT. REQUEST WILL CONTINUE TO MONITOR.
--- NOTE | 2022-03-18 21:39 | NUR ---
RN NOTES: PT. COMPLIANT WITH NIGHT SCHEDULE MEDS .
[2022-03-19] MEDS: METFORMIN 500 MG TABLET PO SCH (07:30)
[2022-03-19] MEDS: ASCORBIC ACID 500 MG TABLET PO SCH ×2 (08:51→17:00)
[2022-03-19] MEDS: DULOXETINE HCL 30 MG CAPSULE.DR PO SCH (08:51)
[2022-03-19] MEDS: ASPIRIN 81 MG TAB.CHEW PO SCH (08:51)
[2022-03-19] MEDS: AMLODIPINE BESYLATE 10 MG TABLET PO SCH (08:51)
[2022-03-19] MEDS: METOPROLOL SUCCINATE 25 MG TAB.SR.24H PO SCH ×2 (08:52→20:18)
[2022-03-19] MEDS: CHOLECALCIFEROL 1,000 UNIT TABLET (VIT D3) PO SCH (08:52)
[2022-03-19] MEDS: DIVALPROEX SODIUM 125 MG CAP.SPRINK PO SCH ×2 (09:00→20:18)
--- NOTE | 2022-03-19 09:00 | NUR ---
GPS/RN RECEIVED PT IN HIS ROOM RESTING, LABILE AND IRRITABLE. PATIENT DENIES A/VH AND SI/HI AT THIS TIME. REFUSED AM MEDS EXEPT ZYPREXA. NO S/S OF DISTRESS NOTED. AMBULATORY ALL NEEDS ATTENDED AND ANTICIPATED. WILL CONTINUE TO MONITOR Q15 FOR MOOD, SAFETY AND BEHAVIOR.
[2022-03-19] MEDS: OLANZAPINE ZYDIS 5 MG TAB.RAPDIS PO SCH ×3 (09:05→17:44)
--- NOTE | 2022-03-19 19:46 | NUR ---
RN NOTES: PATIENT IN HIS ROOM RESTING . NO S/SX OF ACUTE DISTRESS NOTED. PATIENT REMAINS ANXIOUS, PARANOID UPON APPROACH, GUARDED, SUSPICIOUS, NO VERBALIZATION OF THOUGHTS AND FEELINGS. SAFETY PRECAUTIONS IN PLACE. WILL CONTINUE TO MONITOR Q15MIN ROUNDS FOR SAFETY AND BEHAVIOR.
[2022-03-19 20:00] VITALS: BP 134/69
[2022-03-19] MEDS: TEMAZEPAM 7.5 MG CAPSULE PO PRN (21:31)
--- NOTE | 2022-03-19 21:32 | NUR ---
RN NOTES: INSOMNIA PT. C/O INSOMNIA PRN RESTORIL 7.5 MG PO GIVEN PER PT. REQUEST WILL CONTINUE TO MONITOR.
[2022-03-19] MEDS: ATORVASTATIN 10 MG TABLET PO SCH (21:34)
[2022-03-20] MEDS: METFORMIN 500 MG TABLET PO SCH (07:30)
[2022-03-20] MEDS: OLANZAPINE ZYDIS 5 MG TAB.RAPDIS PO SCH ×3 (08:01→16:43)
[2022-03-20] MEDS: DIVALPROEX SODIUM 125 MG CAP.SPRINK PO SCH ×2 (08:09→20:06)
[2022-03-20] MEDS: DULOXETINE HCL 30 MG CAPSULE.DR PO SCH (08:09)
[2022-03-20] MEDS: METOPROLOL SUCCINATE 25 MG TAB.SR.24H PO SCH ×2 (08:09→20:11)
[2022-03-20] MEDS: CHOLECALCIFEROL 1,000 UNIT TABLET (VIT D3) PO SCH (08:09)
[2022-03-20] MEDS: ASCORBIC ACID 500 MG TABLET PO SCH ×2 (08:09→16:43)
[2022-03-20] MEDS: ASPIRIN 81 MG TAB.CHEW PO SCH (08:09)
[2022-03-20] MEDS: AMLODIPINE BESYLATE 10 MG TABLET PO SCH (08:09)
--- NOTE | 2022-03-20 09:00 | NUR ---
GPS/RN RECEIVED PT IN HIS ROOM RESTING, LABILE AND IRRITABLE. PATIENT DENIES A/VH AND SI/HI AT THIS TIME. REFUSED AM MEDS EXCEPT ZYPREXA. NO S/S OF DISTRESS NOTED. AMBULATORY ALL NEEDS ATTENDED AND ANTICIPATED. WILL CONTINUE TO MONITOR Q15 FOR MOOD, SAFETY AND BEHAVIOR.
--- NOTE | 2022-03-20 20:12 | NUR ---
RN NOTES: PATIENT IN HIS ROOM RESTING . NO S/SX OF ACUTE DISTRESS NOTED, EASILY AGITATED ANXIOUS, PARANOID UPON APPROACH, GUARDED, SUSPICIOUS, NO VERBALIZATION OF THOUGHTS AND FEELINGS. SAFETY PRECAUTIONS IN PLACE. WILL CONTINUE TO MONITOR Q15MIN ROUNDS FOR SAFETY AND BEHAVIOR.
[2022-03-20 20:17] VITALS: BP 128/83
[2022-03-20] MEDS: TEMAZEPAM 7.5 MG CAPSULE PO PRN (21:32)
[2022-03-20] MEDS: ATORVASTATIN 10 MG TABLET PO SCH (21:34)
--- NOTE | 2022-03-20 21:34 | NUR ---
RN NOTES: INSOMNIA PT. C/O INSOMNIA PRN RESTORIL 7.5 MG PO GIVEN PER PT. REQUEST WILL CONTINUE TO MONITOR.
[2022-03-21] MEDS: METFORMIN 500 MG TABLET PO SCH (07:30)
[2022-03-21] MEDS: OLANZAPINE ZYDIS 5 MG TAB.RAPDIS PO SCH ×3 (08:42→16:07)
[2022-03-21] MEDS: ASPIRIN 81 MG TAB.CHEW PO SCH (08:43)
[2022-03-21] MEDS: METOPROLOL SUCCINATE 25 MG TAB.SR.24H PO SCH ×2 (08:43→21:05)
[2022-03-21] MEDS: DULOXETINE HCL 30 MG CAPSULE.DR PO SCH (08:43)
[2022-03-21] MEDS: ASCORBIC ACID 500 MG TABLET PO SCH ×2 (08:43→16:07)
[2022-03-21] MEDS: CHOLECALCIFEROL 1,000 UNIT TABLET (VIT D3) PO SCH (08:43)
[2022-03-21] MEDS: DIVALPROEX SODIUM 125 MG CAP.SPRINK PO SCH ×2 (08:43→21:00)
[2022-03-21] MEDS: AMLODIPINE BESYLATE 10 MG TABLET PO SCH (08:43)
--- NOTE | 2022-03-21 09:00 | NUR ---
GPS/RN RECEIVED PT IN HIS ROOM RESTING, LABILE AND IRRITABLE. PATIENT DENIES A/VH AND SI/HI AT THIS TIME. REFUSED AM MEDS( OFFERED X3) EXCEPT ZYPREXA. NO S/S OF DISTRESS NOTED. AMBULATORY ALL NEEDS ATTENDED AND ANTICIPATED. WILL CONTINUE TO MONITOR Q15 FOR MOOD, SAFETY AND BEHAVIOR.
[2022-03-21 12:23] LABS: BASOPHILS # (AUTO) 0.1 K/uL (0.0-0.2); EOSINOPHILS % (AUTO) 2.4 % (0.0-6.0); HEMATOCRIT 42 % (39-51); HEMOGLOBIN 13.9 g/dL (13.5-17.5); LYMPHOCYTES # (AUTO) 1.2 K/uL (0.8-4.8); LYMPHOCYTES % (AUTO) 17.1 % (20.0-44.0); MEAN CORPUSCULAR HGB CONC 33 g/dl (31.0-36.0); MEAN CORPUSCULAR VOLUME 93 fL (80-96); MONOCYTES # (AUTO) 0.5 K/uL (0.1-1.30); MONOCYTES % (AUTO) 7.3 % (2.0-12.0); NEUTROPHILS # (AUTO) 5.2 K/uL (1.8-8.9); NEUTROPHILS % (AUTO) 72.2 % (43.0-81.0); PLATELET COUNT (AUTO) 135 K/uL (150-450); WHITE BLOOD COUNT (AUTO) 7.1 K/uL (4.3-11.0)
[2022-03-21 13:55] LABS: ALBUMIN 3.2 g/dL (3.4-5.0); BILIRUBIN,TOTAL 0.4 mg/dL (0.2-1.0); CALCIUM, SERUM 8.2 mg/dL (8.5-10.1); CREATININE 1.1 mg/dL (0.6-1.3); POTASSIUM 4.2 mmol/L (3.5-5.1); TOTAL PROTEIN, SERUM 6.7 g/dL (6.4-8.2)
--- NOTE | 2022-03-21 19:25 | NUR ---
GPS RN NOTES RECEIVED PATIENT IN BED AWAKE, ALERT AND ORIENTED X3, ABLE TO MAKE NEEDS KNOWN. NO S/SX OF ACUTE DISTRESS NOTED. PATIENT IS ANXIOUS AT TIMES, VISIBLE IN THE UNIT, UNCOOPERATIVE. NO AGITATION NOTED. DENIES SI/HI/AVH AT THIS TIME. SAFETY PRECAUTIONS IN PLACE. WILL CONTINUE TO MONITOR Q15MIN ROUNDS FOR SAFETY AND BEHAVIOR.
--- NOTE | 2022-03-21 20:00 | NUR ---
GPS RN NOTES PATIENT REFUSED WEEKLY SKIN ASSESSMENT.
[2022-03-21 20:12] VITALS: BP 142/81
[2022-03-21 21:05] VITALS: BP 142/81
[2022-03-21] MEDS: TEMAZEPAM 7.5 MG CAPSULE PO PRN (21:05)
[2022-03-21] MEDS: ATORVASTATIN 10 MG TABLET PO SCH (21:21)
--- NOTE | 2022-03-21 21:30 | NUR ---
GPS RN NOTES: MEDICATION REFUSAL PATIENT REFUSED TO TAKE HIS SCHEDULED NIGHT TIME MEDICATIONS, EXCEPT FOR TOPROL. DESPITE OF RISKS AND BENEFITS EXPLANATION. PATIENT STATED NO, "I DON'T WANT TO TAKE DEPAKOTE, I DON'T HAVE SEIZURE".
[2022-03-22] MEDS: METFORMIN 500 MG TABLET PO SCH (07:30)
--- NOTE | 2022-03-22 08:09 | NUR ---
SW Discharge Note: Patient will be discharged to assisted facility [facility] [address], [place] [address]; ). Please arrange transportation at 1PM. [employer] spoke with Melly records manager at [facility]; [phone], who stated patient will be accepted today. Patient does not have any family to contact. Patient is alert and oriented x2 and is unable to plan for self-care. Patient denies any suicidal or homicidal ideations. Patient is aware and agreeable with discharge plans. Patient will continue to follow-up with (psychiatrist) Dr. Stoll [address], [place] [address]; ([phone]) ([employer] professional [employer]) Dr. Hopkins [address], [place] [address]; ([phone]). Patient presents with euthymic and congruent mood.
[2022-03-22] MEDS: OLANZAPINE ZYDIS 5 MG TAB.RAPDIS PO SCH ×2 (08:38→12:18)
[2022-03-22] MEDS: ASPIRIN 81 MG TAB.CHEW PO SCH (08:40)
[2022-03-22] MEDS: CHOLECALCIFEROL 1,000 UNIT TABLET (VIT D3) PO SCH (08:40)
[2022-03-22] MEDS: DIVALPROEX SODIUM 125 MG CAP.SPRINK PO SCH (08:40)
[2022-03-22] MEDS: DULOXETINE HCL 30 MG CAPSULE.DR PO SCH (08:40)
[2022-03-22] MEDS: AMLODIPINE BESYLATE 10 MG TABLET PO SCH (08:40)
[2022-03-22] MEDS: ASCORBIC ACID 500 MG TABLET PO SCH (08:41)
[2022-03-22] MEDS: METOPROLOL SUCCINATE 25 MG TAB.SR.24H PO SCH (08:41)
--- NOTE | 2022-03-22 10:40 | NUR ---
RN-CO: PATIENT IS A/O X3-4, ABLE TO MAKE NEEDS KNOWN. DENIED PAIN AND DISCOMFORTS. CALM AND COOPERATIVE TO CARE. HE DENIES SUICIDAL AND HOMICIDAL IDEATION. HE DENIES AUDITORY AND VISUAL HALLUCINATIONS. HE IS MEDICALLY CLEARED FOR DISCHARGE.
--- NOTE | 2022-03-22 12:09 | NUR ---
RN-CO: RN-CO: PATIENT IS A/O X3-4, ABLE TO MAKE NEEDS KNOWN. DENIED PAIN AND DISCOMFORTS. CALM AND COOPERATIVE TO CARE. HE DENIES SUICIDAL AND HOMICIDAL IDEATION. HE DENIES AUDITORY AND VISUAL HALLUCINATIONS. HE IS MEDICALLY CLEARED FOR DISCHARGE BY DR SIGALA. PATIENT WAS SEEN AND EXAMINED BY TALYA SOLORIO WITH ORDERS TO DISCONTINUE HOLD AND DISCHARGE PATIENT TO [facility], NOTED AND CARRIED OUT. ALL BELONGGINGS WILL BE GIVEN BACK. DISCHARGE INSTRUCTIONS WAS EXPLAIND AND PT VERBALIZED UNDERSTANDING. HE REFUSED SKIN ASSESSMENT.
--- NOTE | 2022-03-22 12:42 | NUR ---
RN-CO: REPORT WAS GIVEN TO CHANA VAUGHAN.
--- NOTE | 2022-03-22 14:45 | NUR ---
RN-CO: PT WAS PICKED YP BY AMBULANCE, ALL VALUABLES AND BELONGINGS WERE GIVEN BACK AND PATIENT SIGNED THE PROPERTY FORM.
== END 2022-03-22 14:45 | DRG 885 ==
LOC: ER 23:07 → GPS 03-06 03:50
PROVIDERS: ADMIT Nurse Practitioner Psychiatric/Mental Health; ATTEND Student in an Organized Health Care Education/Training Program
DX: F31.9 Bipolar disorder, unspecified (principal); F33.9 Major depressive disorder, recurrent, unspecified; F41.9 Anxiety disorder, unspecified; I10 Essential (primary) hypertension; J44.9 Chronic obstructive pulmonary disease, unspecified; F17.210 Nicotine dependence, cigarettes, uncomplicated; I25.2 Old myocardial infarction; Z59.00 Homelessness unspecified; Z91.19 Patient's noncompliance with other medical treatment and regimen; Z73.6 Limitation of activities due to disability; Z95.5 Presence of coronary angioplasty implant and graft; R07.9 Chest pain, unspecified; Z79.899 Other long term (current) drug therapy; Z20.822 Contact with and (suspected) exposure to COVID-19
CPT/HCPCS: 36415; 80048-TC; 80053-TC; 80061-TC; 80076-TC; 80164-TC; 84443-TC; 84484-TC; 85025-TC; C9803; G0480; J1630; J1631

== ENCOUNTER 2025-04-05 23:26 | Inpatient (IN) | payer MEDICARE, MEDICAID ==
[~2025-04-05] VITALS: Ht 165.1 cm; Wt 81.6 kg
[~2025-04-05 23:26] MED LIST: ALBU2.5V13 NEB; AMLO-213 PO; ASCO500T21 PO; ASPI-1169 PO; ATOR10TA PO; BUDE0.5A4 NEB; CHOL100045 PO; METF-440 PO; METO25TA4 PO
[2025-04-06 01:10] LABS: BASOPHILS % (AUTO) 0.4 % (0.0-2.0); EOSINOPHILS # (AUTO) 0.3 K/uL (0.0-0.7); EOSINOPHILS % (AUTO) 2.5 % (0.0-6.0); HEMATOCRIT 44 % (39-51); HEMOGLOBIN 15.1 g/dL (13.5-17.5); LYMPHOCYTES # (AUTO) 1.1 K/uL (0.8-4.8); LYMPHOCYTES % (AUTO) 11.3 % (20.0-44.0); MEAN CORPUSCULAR HEMOGLOBIN 32 PG (26.0-33.0); MEAN CORPUSCULAR HGB CONC 34 g/dl (31.0-36.0); MEAN CORPUSCULAR VOLUME 92 fL (80-96); MONOCYTES # (AUTO) 0.8 K/uL (0.1-1.30); MONOCYTES % (AUTO) 7.7 % (2.0-12.0); NEUTROPHILS # (AUTO) 7.8 K/uL (1.8-8.9); NEUTROPHILS % (AUTO) 78.1 % (43.0-81.0); PLATELET COUNT (AUTO) 154 K/uL (150-450); RED BLOOD CELL COUNT(AUTO) 4.79 MIL/uL (4.5-6.0); RED CELL DISTRIBUTION WIDTH 13.5 % (11.5-15.0)
[2025-04-06] MEDS ORDERED: LORAZEPAM INJ 2 MG/ML VIAL ONE (01:11)
[2025-04-06] MEDS: LORAZEPAM INJ 2 MG/ML VIAL IM ONE (01:12)
[2025-04-06 01:15] LABS: APPEARANCE,URINE CLEAR (CLEAR); BILIRUBIN,URINE NEGATIVE (NEGATIVE); BLOOD, URINE NEGATIVE Ery/uL (NEGATIVE); COLOR,URINE YELLOW (YELLOW); KETONES,URINE 1+ mg/dL (NEGATIVE); LEUKOCYTE ESTERASE ,URINE NEGATIVE (NEGATIVE); NITRITE, URINE NEGATIVE (NEGATIVE); PROTEIN,URINE NEGATIVE (NEGATIVE); UGLUCOSE NEGATIVE (NEGATIVE)
[2025-04-06 01:26] LABS: CARBON DIOXIDE 25 mmol/L (21-32); CHLORIDE 105 mmol/L (98-107); GLUCOSE 155 mg/dL (74-106); POTASSIUM 3.9 mmol/L (3.5-5.1); SODIUM SERUM 138 mmol/L (136-145); UREA NITROGEN, BLOOD 19 mg/dL (7-18)
[2025-04-06 01:31] LABS: AMPHETAMINE, URINE NEGATIVE (NEGATIVE); BARBITURATE, URINE NEGATIVE (NEGATIVE); BENZODIAZEPINE, URINE POSITIVE (NEGATIVE); CANNABINOID, URINE NEGATIVE (NEGATIVE); COCCAINE, URINE NEGATIVE (NEGATIVE); OPIATE, URINE NEGATIVE (NEGATIVE); PHENCYCLIDINE SCREEN,URINE NEGATIVE (NEGATIVE)
[2025-04-06 01:31] LABS: ACETAMINOPHEN <10 ug/ml (10-30); ALANINE AMINOTRANSFERASE 93 U/L (12-78); ALBUMIN 3.7 g/dL (3.4-5.0); ALCOHOL, BLOOD < 3 mg/dL (0-10); ALKALINE PHOSPHATASE 114 U/L (46-116); ASPARTATE AMINOTRANSFERASE 103 U/L (15-37); BILIRUBIN,DIRECT 0.2 mg/dL (0.0-0.2); BILIRUBIN,TOTAL 0.7 mg/dL (0.2-1.0); SALICYLATE 1.2 mg/dL (2.8-20.0); TOTAL PROTEIN, SERUM 7.5 g/dL (6.4-8.2)
[2025-04-06 01:37] LABS: FINE GRANULAR CASTS,URINE Few /LPF (None Seen); MUCUS,URINE Many /LPF (None Seen)
[2025-04-06 01:38] LABS: ADD URINE CULTURE YES; BACTERIA,URINE Moderate /HPF (None Seen); RBC,URINE 0-2 /HPF (0-2); SQUAMOUS EPITHELIAL CELL,UR Moderate /HPF (None Seen)
[2025-04-06] MEDS ORDERED: diphenhydrAMINE HCL 50 MG/ML VIAL ONE (02:08)
[2025-04-06] MEDS: diphenhydrAMINE HCL 50 MG/ML VIAL IM ONE ×2 (02:13→10:42)
[2025-04-06] MEDS ORDERED: LORAZEPAM 0.5 MG TABLET PO PRN ×2 (03:00)
[2025-04-06] MEDS ORDERED: ACETAMINOPHEN 325 MG TABLET PO PRN (03:00)
[2025-04-06] MEDS ORDERED: MAGNESIUM HYDROXIDE 30 ML UDC PO PRN (03:00)
[2025-04-06 03:01] VITALS: BP 135/78; TEMP 98; O2SAT 98
[2025-04-06] MEDS: BLOOD SUGAR DIAGNOSTIC 1 EACH STRIP IN ONE (03:23)
[2025-04-06] MEDS ORDERED: RANO500T6 PO (07:53)
[2025-04-06] MEDS ORDERED: TAMS-12 PO (07:53)
[2025-04-06] MEDS ORDERED: LISI20TA30 PO (07:53)
[2025-04-06] MEDS ORDERED: DOCU100C36 PO (07:53)
[2025-04-06] MEDS ORDERED: HYDR-500 PO (07:53)
[2025-04-06] MEDS ORDERED: NITR0.4T48 SL (07:53)
[2025-04-06] MEDS ORDERED: ALBU6.7H9 IH (07:53)
[2025-04-06] MEDS ORDERED: HYDR-4303 PO (07:53)
[2025-04-06] MEDS ORDERED: METH-649 PO (07:53)
[2025-04-06] MEDS ORDERED: ZOLP5TAB2 PO (07:53)
[2025-04-06] MEDS ORDERED: ATOR20TA PO (07:53)
[2025-04-06] MEDS ORDERED: METO25TA6 PO (07:53)
[2025-04-06] MEDS ORDERED: ISOS30TA86 PO (07:53)
[2025-04-06] MEDS ORDERED: FAMO20TA80 PO (07:53)
[2025-04-06] MEDS ORDERED: LIDO1ADH90 TD (07:53)
[2025-04-06] MEDS ORDERED: RISP1TAB97 PO (07:53)
[2025-04-06] MEDS: HALOPERIDOL LACTATE INJ 5 MG/ML VIAL IM STA (10:41)
[2025-04-06] MEDS: HALOPERIDOL 5 MG TABLET PO SCH (13:00)
[2025-04-06] MEDS: BENZTROPINE MESYLATE (1 MG) 1 MG TABLET PO SCH (13:00)
[2025-04-06] MEDS: DIVALPROEX SODIUM 125 MG CAP.SPRINK PO SCH (21:00)
[2025-04-07] MEDS: HALOPERIDOL LACTATE INJ 5 MG/ML VIAL IM ONE (09:10)
[2025-04-07] MEDS: diphenhydrAMINE HCL 50 MG/ML VIAL IM ONE (09:10)
[2025-04-07] MEDS: LORAZEPAM 0.5 MG TABLET PO PRN (16:56)
[2025-04-08] MEDS: HALOPERIDOL 5 MG TABLET PO SCH (08:58)
[2025-04-08] MEDS ORDERED: METHOCARBAMOL (750MG) 750 MG TABLET PO PRN (09:30)
[2025-04-08] MEDS ORDERED: DOCUSATE SODIUM 100 MG CAPSULE PO PRN (09:30)
[2025-04-08] MEDS ORDERED: ALBUTEROL FS 2.5 MG/0.5 ML VIAL.NEB NEB PRN (10:00)
[2025-04-08] MEDS: METOPROLOL TARTRATE 25 MG TABLET PO SCH (10:22)
[2025-04-08] MEDS: ASPIRIN 81 MG TAB.CHEW PO SCH (10:22)
[2025-04-08] MEDS: RANOLAZINE 500 MG TAB.ER.12H PO SCH (10:22)
[2025-04-08] MEDS: LISINOPRIL (20MG) 20 MG TABLET PO SCH (10:22)
[2025-04-08] MEDS: FAMOTIDINE (20 MG) 20 MG TABLET PO SCH (10:22)
[2025-04-08] MEDS: ISOSORBIDE MONONITRATE (30MG) 30 MG TAB.SR.24H PO SCH (10:23)
[2025-04-08] MEDS: TAMSULOSIN 0.4 MG CAP.SR.24H PO SCH (17:02)
[2025-04-08 20:53] VITALS: BP 134/81; TEMP 97.9; O2SAT 97
[2025-04-08] MEDS: ATORVASTATIN 10 MG TABLET PO SCH (21:48)
[2025-04-09 08:00] VITALS: BP 130/92; TEMP 98.6; O2SAT 98
[2025-04-09] MEDS: DIVALPROEX SODIUM 125 MG CAP.SPRINK PO SCH (08:30)
[2025-04-09] MEDS: HALOPERIDOL 5 MG TABLET PO SCH (08:31)
[2025-04-10] MEDS: TEMAZEPAM 7.5 MG CAPSULE PO PRN (00:21)
[2025-04-10 10:58] LABS: ALBUMIN 3.7 g/dL (3.4-5.0); BILIRUBIN,TOTAL 0.4 mg/dL (0.2-1.0); CALCIUM, SERUM 9.1 mg/dL (8.5-10.1); POTASSIUM 4.4 mmol/L (3.5-5.1); TOTAL PROTEIN, SERUM 7.5 g/dL (6.4-8.2)
[2025-04-10] MEDS: MAG HYDROX/AL HYDROX/SIMETH 30 ML UDC PO PRN (15:12)
[2025-04-10 15:25] VITALS: BP 160/100
[2025-04-10] MEDS: HYDROCODONE/APAP 5/325MG TABLET PO PRN (18:57)
[2025-04-11] MEDS: DIVALPROEX SODIUM 125 MG CAP.SPRINK PO SCH (09:04)
== END 2025-04-12 12:30 | DRG 885 ==
LOC: ER 23:35 → GPS 04-06 01:43
PROVIDERS: ADMIT Nurse Practitioner Acute Care
DX: F25.0 Schizoaffective disorder, bipolar type (principal); R45.851 Suicidal ideations; I10 Essential (primary) hypertension; E11.9 Type 2 diabetes mellitus without complications; J45.909 Unspecified asthma, uncomplicated; N40.0 Benign prostatic hyperplasia without lower urinary tract symptoms; Z79.82 Long term (current) use of aspirin; Z79.84 Long term (current) use of oral hypoglycemic drugs; Z20.822 Contact with and (suspected) exposure to COVID-19; F03.90 Unspecified dementia, unspecified severity, without behavioral disturbance, psychotic disturbance, mood disturbance, and anxiety; Z73.6 Limitation of activities due to disability; F29 Unspecified psychosis not due to a substance or known physiological condition; Z79.899 Other long term (current) drug therapy; Z91.199 Patient's noncompliance with other medical treatment and regimen due to unspecified reason; Z87.891 Personal history of nicotine dependence
CPT/HCPCS: 36415; 80048-TC; 80053-TC; 80061-TC; 80076-TC; 81001; 85025-TC; 87081-TC; 87086-TC; G0480; J1200; J1630; J2060